=== PATIENT | female | born 1985 | race Caucasian/White ===

== ENCOUNTER 2016-06-12 12:05 | Inpatient (IN) | payer MEDICAID ==
[~2016-06-12] VITALS: Ht 144.8 cm; Wt 67.0 kg
[2016-06-12] MEDS ORDERED: CARBOPROST 250 MCG INJ IM PRN ×2 (12:30→21:00)
[2016-06-12] MEDS ORDERED: OXYTOCIN 30 UNITS/LR 500 ML IV SCH (12:30)
[2016-06-12] MEDS ORDERED: MISOPROSTOL 200 MCG TAB PR PRN ×2 (12:30→21:00)
[2016-06-12] MEDS ORDERED: METHYLERGONOVINE 0.2 MG INJ IM PRN ×2 (12:30→21:00)
[2016-06-12] MEDS ORDERED: OXYTOCIN 30 UNITS/LR 500 ML IV PRN ×2 (12:30→21:00)
[2016-06-12] MEDS ORDERED: CEFAZOLIN 2 GM/50 ML (PMX) 50 ML IV SCH (12:30)
[2016-06-12 12:36] VITALS: Ht 144.8 cm; Wt 67.0 kg
[2016-06-12] MEDS: LACTATED RINGER'S 1,000 ML IV SCH ×3 (12:55→20:31)
[2016-06-12 13:01] LABS: ADD SCAN DIFF NO
[2016-06-12 13:07] LABS: BASOPHILS % 0.4 % (0.0-2.0); EOSINOPHILS # 0.1 10^3/ul (0.0-0.5); EOSINOPHILS % 0.7 % (0.0-7.0); HEMATOCRIT 35.3 % (37.0-47.0); HEMOGLOBIN 11.6 g/dl (12.0-16.0); LYMPHOCYTES # 2.8 10^3/ul (0.8-2.9); LYMPHOCYTES % 26.6 % (15.0-51.0); MEAN CORPUSCULAR HEMOGLOBIN 28.1 pg (29.0-33.0); MEAN CORPUSCULAR HGB CONC 32.9 g/dl (32.0-37.0); MEAN CORPUSCULAR VOLUME 85.5 fl (82.0-101.0); MEAN PLATELET VOLUME 11.3 fl (7.4-10.4); MONOCYTE # 0.6 10^3/ul (0.3-0.9); MONOCYTES % 5.5 % (0.0-11.0); NEUTROPHIL # 6.9 10^3/ul (1.6-7.5); NEUTROPHILS % 66.1 % (39.0-77.0); PLATELET COUNT 269 10^3/UL (140-415); RED BLOOD COUNT 4.13 10^6/ul (4.20-5.40); RED CELL DISTRIBUTION WIDTH 13.4 % (11.5-14.5); WHITE BLOOD COUNT 10.5 10^3/ul (4.8-10.8)
[2016-06-12 13:17] LABS: INR 0.92; PROTIME 12.4 Sec (12.2-14.2)
[2016-06-12 13:18] LABS: PARTIAL THROMBOPLASTIN TIME 24.2 Sec (25.0-35.0)
[2016-06-12] MEDS ORDERED: AMPICILLIN 2 GM/NS (PMX) 100 ML IVPB ONE (13:30)
[2016-06-12] MEDS ORDERED: LACTATED RINGER'S 1,000 ML IV ONE (14:26)
[2016-06-12] MEDS ORDERED: CITRIC ACID/NA CITRATE 30 ML CUP PO ONE (14:30)
[2016-06-12] MEDS ORDERED: ONDANSETRON 4 MG INJ IV ONE (14:30)
[2016-06-12] MEDS ORDERED: morphine SULFATE/PF (10 MG/10 ML) INJ ONE (14:33)
[2016-06-12] MEDS ORDERED: FENTAnyl 50 MCG/ML VIAL ONE (14:33)
--- NOTE | 2016-06-12 16:41 | HP ---
Date/Time of Note Date/Time of Note DATE: 06/12/16 TIME: 16:40 OB - History Hx of Present Free Text/Dictation term preg. at 39 weeks for repeat c/s : 3 Para: 2 Care: Good Care Ultrasounds: Normal mid trimester US Obstetrical Complications: None Medical Complications: None Past Family/Social History * Past Medical, Surgical, Family and Obstetric Histories reviewed from chart. OB Admission Exam Physical Exam HEENT: WNL Heart: Rhythm Normal Lungs: Clear, Equal Abdomen: WNL Extremities: Normal Reflexes: Normal Cervical Dilatation: None Contractions on Admission: None Last 72 hours Lab Results CBC & BMP 06/12/16 12:26 OB Assessment/Plan Reason for admission: section Plan: Section EDUARDO MCFARLAND MD Jun 12, 2016 16:41
[2016-06-12] MEDS ORDERED: METOCLOPRAMIDE 10 MG INJ ONE (16:47)
[2016-06-12] MEDS ORDERED: PHENYLephrine (100 MCG/ML) 5ML SYG ONE (16:47)
[2016-06-12] MEDS ORDERED: EPHEDrine SULFATE 50 MG/5 ML SYG ONE (16:49)
[2016-06-12] MEDS ORDERED: OXYTOCIN 30 UNITS/LR 500 ML IV ONE (16:49)
--- NOTE | 2016-06-12 17:21 | OPR ---
Operative Report Planned Procedure Free Text/Dictation term preg for repeat c/s Procedure date Jun 12, 2016 Performed by: EDUARDO MCFARLAND MD Assisting provider: SANJUANA BEAVER MD Anesthesia Type: spinal Procedure Description Under satisfactory [spinal ] anesthesia, the patient was prepped and draped and placed in a supine position, tilted to the left. Pfannenstiel incision was made , carried through the subcutaneous tissue. Bleeders brought under control with electrocautery. Fascia incised to the length of the incision. Rectus muscles from the fascia, divided midline. Peritoneum exposed, entered through a transverse incision. Exploration of abdomen revealed gravid uterus. Bladder flap was developed. Transverse incision was made in the lower segment of the uterus. Amniotic sac ruptured. []clear amniotic fluid noted. [] Nasal oropharyngeal suction was performed. The baby was handed to the team for immediate attention. The placenta was delivered manually intact. Uterine cavity was cleaned with wet sponge and drainage established. Uterus closed in 2 layers using []one monocryl in continuous fashion. Peritoneal cavity irrigated with warm saline. Sponge, needle and instrument count reported to be correct. Abdominal peritoneum closed with [] continuously. Rectus muscle approximated with []. Fascia closed with [], and skin closed with sheldon. Estimated blood loss 700 []mL. Urine bag contained []mL of urine Post-Procedure Findings: Live Baby [], Apgars [] and [], weight [], position [], [] presentation []cord. Complications: None Pt Condition post procedure: stable Physician Certification I, the undersigned physician, hereby certify that I have discussed the procedure described in this consent form with this patient (or the patient's legal specialty sales representative), including: * The risk and benefits of the procedure; * Any adverse reactions that may reasonably be expected to occur; * Any alternative efficacious methods of treatment which may be medically viable ; * The potential problems that may occur during recuperation; * Potential for blood transfusion and associated risks/benefits; and * Any research or economic interest I may have regarding this treatment. I further certify that the patient/legally responsible person was encouraged to ask question and that all questions were answered. EDUARDO MCFARLAND MD Jun 12, 2016 17:21
[2016-06-12] MEDS ORDERED: PROCHLORPERAZINE 10 MG INJ IV PRN (18:00)
[2016-06-12] MEDS ORDERED: ONDANSETRON 4 MG INJ IV PRN (18:00)
[2016-06-12] MEDS ORDERED: DIPHENHYDRAMINE 50 MG INJ IV PRN (18:00)
[2016-06-12] MEDS ORDERED: morphine 2 MG INJ IV PRN ×2 (18:00)
[2016-06-12] MEDS ORDERED: NALOXONE (0.4 MG/ML) INJ IV PRN (18:00)
[2016-06-12] MEDS ORDERED: PRENAT PO (18:27)
[2016-06-12] MEDS: KETOROLAC 30 MG INJ IV PRN (18:51)
[2016-06-12 20:30] VITALS: BP 130/61; PULSE 63; RESP 19
[2016-06-12 21:00] VITALS: BP 134/69; PULSE 64; RESP 18
[2016-06-12] MEDS ORDERED: ACETAMINOPHEN/CODEINE #3 TAB PO PRN (21:00)
[2016-06-12] MEDS ORDERED: NACL 0.9% 3 ML SYG IV SCH (21:00)
[2016-06-12] MEDS ORDERED: LANOLIN 7 GM TUBE TOP PRN (21:00)
[2016-06-12] MEDS ORDERED: NA PHOSPHATE/BIPHOS 133 ML ENEMA PR PRN (21:00)
[2016-06-13] MEDS: OXYTOCIN 30 UNITS/LR 500 ML IV SCH ×2 (04:03)
[2016-06-13 04:07] VITALS: BP 105/57; PULSE 67; RESP 17
[2016-06-13] MEDS: LACTATED RINGER'S 1,000 ML IV SCH ×3 (04:31→19:50)
[2016-06-13] MEDS: KETOROLAC 30 MG INJ IV PRN ×2 (06:13→11:58)
[2016-06-13 08:30] VITALS: BP 117/70; PULSE 77; RESP 18
[2016-06-13 11:52] LABS: ADD SCAN DIFF NO
[2016-06-13 11:54] LABS: BASOPHILS % 0.3 % (0.0-2.0); EOSINOPHILS % 0.3 % (0.0-7.0); HEMATOCRIT 28.3 % (37.0-47.0); HEMOGLOBIN 9.3 g/dl (12.0-16.0); LYMPHOCYTES # 1.9 10^3/ul (0.8-2.9); LYMPHOCYTES % 16.5 % (15.0-51.0); MEAN CORPUSCULAR HEMOGLOBIN 28.4 pg (29.0-33.0); MEAN CORPUSCULAR HGB CONC 32.9 g/dl (32.0-37.0); MEAN CORPUSCULAR VOLUME 86.5 fl (82.0-101.0); MEAN PLATELET VOLUME 11.4 fl (7.4-10.4); MONOCYTE # 0.7 10^3/ul (0.3-0.9); MONOCYTES % 5.7 % (0.0-11.0); NEUTROPHILS % 76.9 % (39.0-77.0); PLATELET COUNT 206 10^3/UL (140-415); RED BLOOD COUNT 3.27 10^6/ul (4.20-5.40); RED CELL DISTRIBUTION WIDTH 13.8 % (11.5-14.5); WHITE BLOOD COUNT 11.7 10^3/ul (4.8-10.8)
[2016-06-13 12:00] VITALS: BP 99/54; PULSE 77; RESP 18
--- NOTE | 2016-06-13 15:37 | PN ---
Date/Time of Note Date/Time of Note DATE: 06/13/16 TIME: 15:34 Assessment/Plan VTE Prophylaxis VTE Prophylaxis Intervention: ambulation, anti-embolic stocking Lines/Catheters IV Catheter Type (from Nrsg): Peripheral IV Assessment/Plan Chief Complaint/Hosp Course Postoperative day #1 Status post repeat section Doing well mild anemia, asymptomatic Problems: Assessment/Plan Advance diet Ambulation Routine postop care iron BID when tolerates p.o. well Subjective 24 Hr Interval Summary Free Text/Dictation Status post repeat Postoperative day #1 Patient tolerated clear liquid diet. Pain well controlled with pain medication. Has a started breast-feeding. Passed flatus. Vaginal bleeding decrease. Urinated. Eyes: no complaints ENT: no complaints Genitourinary: bleeding (Heavier than menstrual period), no complaints, other ( Appropriate tenderness in the section incision. Incision clean dry and intact. No evidence of infection or hematoma or drainage) Musculoskeletal: no complaints Skin: no complaints Neurologic: no complaints Endocrine: no complaints Psychological: no complaints Immunologic: no complaints Exam/Review of Systems Vital Signs Vitals Vital Signs Date Time Temp Pulse Resp B/P Pulse Ox O2 Delivery O2 Flow Rate FiO2 06/13/16 08:30 98.6 77 18 117/70 Room Air 06/13/16 05:37 96 21 Intake and Output 06/12/16 06/12/16 06/13/16 15:00 23:00 07:00 Intake Total 1150 ml 950 ml Output Total 950 ml 800 ml Balance 200 ml 150 ml Exam Constitutional: alert, oriented, well developed Psych: nl mood/affect, no complaints Head: atraumatic, normocephalic Respiratory: clear to auscultation, normal air movement Cardiovascular: nl pulses, regular rate and rhythm Gastrointestinal: other (Incision, clean dry and intact with no evidence of drainage or hematoma), soft Musculoskeletal: nl extremities to inspection, nl gait and stance Extremities: normal pulses 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0 Medications Medications Current Medications Naloxone HCl (Narcan) 0.1 mg Q2M PRN IV FOR RESP RATE 8 OR LESS; Start at 18:00; Stop 06/13/16 at 17:59 Ketorolac Tromethamine (Toradol) 30 mg Q6H PRN IV PAIN Last administered on 11:58; Admin Dose 30 MG; Start 06/12/16 at 18:00; Stop 06/13/16 at 17:59 Morphine Sulfate (morphine) 2 mg Q3H PRN IV PAIN LEVEL 1-5; Start 06/12/16 at 18:00; Stop 06/13/16 at 17:59 Morphine Sulfate (morphine) 4 mg Q3H PRN IV PAIN LEVEL 6-10; Start 06/12/16 at 18:00; Stop 06/13/16 at 17:59 Diphenhydramine HCl (Benadryl) 25 mg Q6H PRN IV ITCHING; Start 06/12/16 at 18: 00; Stop 06/13/16 at 17:59 Ondansetron HCl (Zofran Inj) 4 mg Q6H PRN IV NAUSEA AND/OR VOMITING Last administered on 06/12/16 23:12; Admin Dose 4 MG; Start 06/12/16 at 18:00; Stop 06/13/16 at 17:59 Prochlorperazine 10 mg 10 mg ONCE PRN IV NAUSEA AND/OR VOMITING; Start 06/12/16 at 18:00; Stop 06/13/16 at 17:59 Lactated Ringer's (Lr) 1,000 ml @ 125 mls/hr Q8H IV Last administered on 08:10; Admin Dose 125 MLS/HR; Start 06/12/16 at 20:31 Acetaminophen/ Codeine Phosphate (Tylenol No.3) 2 tab Q4H PRN PO PAIN LEVEL 7- 10; Start 06/12/16 at 21:00 Oxycodone/ Acetaminophen (Percocet (5/ 325)) 2 tab Q4H PRN PO PAIN LEVEL 7-10; Start 06/12/16 at 21:00 Ibuprofen (Motrin) 800 mg Q8 PO ; Start 06/13/16 at 19:00 Simethicone (Mylicon) 160 mg Q8H PRN PO DISTENSION/GAS/BLOATING; Start at 21:00 Sodium Biphosphate/ Sodium Phosphate (Fleet Enema) 133 ml DAILY PRN DC CONSTIPATION; Start 06/12/16 at 21:00 Diphtheria/ Tetanus/Acell Pertussis (Adacel) 0.5 ml ONCE ONCE IM* ; Start at 09:00; Stop 06/15/16 at 09:01 Measles/Mumps/ Rubella Vaccine Live 0.5 ml 0.5 ml ONCE ONCE SC* ; Start at 09:00; Stop 06/15/16 at 09:01 Oxytocin/Lactated Ringer's 500 ml @ 0 mls/hr ONCE PRN IV For Hemorrhage Management; Start 06/12/16 at 21:00 Methylergonovine Maleate (Methergine) 0.2 mg ONCE PRN IM VAGINAL BLEEDING; Start 06/12/16 at 21:00 Carboprost Tromethamine (Hemabate) 250 mcg ONCE PRN IM VAGINAL BLEEDING; Start 06/12/16 at 21:00 Misoprostol (Cytotec) 1,000 mcg ONCE PRN DC VAGINAL BLEEDING; Start 06/12/16 at 21:00 Procedures Procedures Hematology - 72 Hrs Test 06/12/16 12:26 06/13/16 09:36 White Blood Count 10.510^3/ul (4.8-10.8) 11.710^3/ul (4.8-10.8) H Red Blood Count 4.1310^6/ul (4.20-5.40) #L 3.2710^6/ul (4.20-5.40) #L Hemoglobin 11.6g/dl (12.0-16.0) #L 9.3g/dl (12.0-16.0) L Hematocrit 35.3% (37.0-47.0) #L 28.3% (37.0-47.0) L Mean Corpuscular Volume 85.5fl (82.0-101.0) 86.5fl (82.0-101.0) Mean Corpuscular Hemoglobin 28.1pg (29.0-33.0) L 28.4pg (29.0-33.0) L Mean Corpuscular Hemoglobin Concent 32.9g/dl (32.0-37.0) 32.9g/dl (32.0-37.0) Red Cell Distribution Width 13.4% (11.5-14.5) 13.8% (11.5-14.5) Platelet Count 11506^3/UL (140-415) 68670^3/UL (140-415) # Mean Platelet Volume 11.3fl (7.4-10.4) #H 11.4fl (7.4-10.4) H Neutrophils % 66.1% (39.0-77.0) 76.9% (39.0-77.0) Lymphocytes % 26.6% (15.0-51.0) 16.5% (15.0-51.0) Monocytes % 5.5% (0.0-11.0) 5.7% (0.0-11.0) Eosinophils % 0.7% (0.0-7.0) 0.3% (0.0-7.0) Basophils % 0.4% (0.0-2.0) 0.3% (0.0-2.0) Nucleated Red Blood Cells % 0.0/100WBC (0.0-0.0) 0.0/100WBC (0.0-0.0) Neutrophils # 6.910^3/ul (1.6-7.5) 9.010^3/ul (1.6-7.5) H Lymphocytes # 2.810^3/ul (0.8-2.9) 1.910^3/ul (0.8-2.9) Monocytes # 0.610^3/ul (0.3-0.9) 0.710^3/ul (0.3-0.9) Eosinophils # 0.110^3/ul (0.0-0.5) 0.010^3/ul (0.0-0.5) Basophils # 0.010^3/ul (0.0-0.1) 0.010^3/ul (0.0-0.1) Nucleated Red Blood Cells # 0.010^3/ul (0.0-0.0) 0.010^3/ul (0.0-0.0) GABE MCGRATH MD Jun 13, 2016 15:37
[2016-06-13 16:00] VITALS: BP 109/62; PULSE 76; RESP 18
[2016-06-13] MEDS: OXYCODONE/ACETAMINOPHEN (5/325) TAB PO PRN (17:32)
[2016-06-13] MEDS: IBUPROFEN 800 MG TAB PO SCH ×2 (19:31→22:32)
[2016-06-13 20:15] VITALS: BP 120/69; PULSE 70; RESP 17
[2016-06-14] VITALS: BP 116/69; PULSE 68; RESP 19
[2016-06-14 04:00] VITALS: BP 113/68; PULSE 70; RESP 18
[2016-06-14] MEDS: IBUPROFEN 800 MG TAB PO SCH ×3 (05:40→21:40)
[2016-06-14] MEDS: OXYCODONE/ACETAMINOPHEN (5/325) TAB PO PRN ×3 (06:28→19:36)
[2016-06-14 08:35] VITALS: BP 122/78; PULSE 74; RESP 17
[2016-06-14] MEDS: LACTATED RINGER'S 1,000 ML IV SCH ×2 (12:31→20:31)
[2016-06-14 16:00] VITALS: BP 120/75; PULSE 75; RESP 17
[2016-06-14 20:00] VITALS: BP 121/69; PULSE 65; RESP 18
[2016-06-14] MEDS: SENNA/DOCUSATE NA (8.6MG/50MG) TAB PO SCH (21:13)
[2016-06-15] MEDS: OXYCODONE/ACETAMINOPHEN (5/325) TAB PO PRN ×2 (01:42→08:51)
[2016-06-15 04:00] VITALS: BP 114/55; PULSE 62; RESP 18
[2016-06-15] MEDS: LACTATED RINGER'S 1,000 ML IV SCH ×2 (04:31→12:31)
[2016-06-15] MEDS: IBUPROFEN 800 MG TAB PO SCH ×2 (05:40→14:00)
[2016-06-15 08:00] VITALS: BP 116/69; PULSE 65; RESP 18
[2016-06-15] MEDS: SENNA/DOCUSATE NA (8.6MG/50MG) TAB PO SCH (08:52)
[2016-06-15] MEDS ORDERED: MEASLES,MUMPS,RUBELLA VACCINE INJ SC* ONE (09:00)
[2016-06-15] MEDS ORDERED: DIPHTH/TET/ACEL PERTUSS (ADULT) 0.5 ML VIAL IM* ONE (09:00)
--- NOTE | 2016-06-15 12:30 | DS ---
Date/Time of Note Date/Time of Note DATE: 06/15/16 TIME: 12:29 Discharge Summary Admission/Discharge Info Admit Date/Time Jun 12, 2016 at 12:05 Discharge Date/Time Final Diagnosis term , repeat c/s Patient Condition: Stable Hospital Course Postoperative day #1 Status post repeat section Doing well mild anemia, asymptomatic Home Meds Reported Medications Multivit/Min/Fol Ac/Iron/Pren* ( S*) 1 Tab Tab, 1 TAB PO DAILY, TAB 06/12/16 EDUARDO MCFARLAND MD Jun 15, 2016 12:30
--- NOTE | 2016-06-15 12:33 | QN ---
Documentation Comment doing well no complaints incision healing well pt. seen by Dr. Beavers RTC in 3 weeks EDUARDO MCFARLAND MD Jun 15, 2016 12:33
--- NOTE | 2016-06-15 13:50 | PN ---
Date/Time of Note Date/Time of Note DATE: 06/15/16 TIME: 13:48 OB Subjective Subjective Subjective Patient without complaints. Ready to go home. OB Objective Objective Objective AFVSS Gen: NAD Abd: I-C/D/I, minimal serosanguinous discharge OB Assessment/Plan Other Assessment: POD3 Other plan: Dischage home today. Pelvic rest and no heavy lifting. Rx for pain meds given. F/u in clinic for incision check and care. WINSTON ARNOLD Jun 15, 2016 13:50
== END 2016-06-15 14:55 | disposition home or self-care (01) | DRG 766 ==
LOC: L-D 12:05 → PP1 20:45
PROVIDERS: ADMIT Obstetrics & Gynecology; ATTEND Obstetrics & Gynecology
PROC: 10D00Z1 Extraction of Products of Conception, Low, Open Approach (ICD-10-PCS; principal; 2016-06-12 15:30)
DX: O34.211 Maternal care for low transverse scar from previous cesarean delivery (principal); O99.02 Anemia complicating childbirth; Z3A.39 39 weeks gestation of pregnancy; Z37.0 Single live birth
CPT/HCPCS: 85025; 85610; 85730; 86592; 86850; 86900; 86901; 87340; 90715; 94760; 99464; J0290; J0690; J1885; J2270; J2274; J2370; J2405; J2590; J2765; J3010; J7120